=== PATIENT | female | born 1950 | race American Indian/Alaskan Native ===

== ENCOUNTER 2020-04-04 17:05 | Emergency (ER) | payer MEDICARE ==
--- NOTE | 2020-04-04 18:23 | Emergency Department Report ---
HPI - General Chief Complaint: Psych Time Seen by Provider: 04/04/20 18:07 - HPI HPI: This is a 69-year-old female who presents to the emergency department via EMS from home with a complaint of alcohol intoxication, depression, and suicidal ideations. The patient has a past medical history of hypertension and a CVA from 2017 with some residual right-sided weakness. The patient mostly gets around by wheelchair. She had a fall trying to transfer from the wheelchair to the couch, where she sleeps. She denies hitting her head, any loss of consciousness. She denies any neck, back or extremity pain. Patient says that she has a psychiatric history of depression for which she is on an antidepressant that "starts with a C." She has been feeling depressed for the past 4 to 5 months and says that this is all been exacerbated by the pandemic because "my is so scared of getting sick so we do not go anywhere ever." Patient says that she has been suicidal for the past 1 month. She says "I do not feel like my life is worth living at this age." The patient says that she would have a plan to overdose on antidepressants, but the only thing keeping her from doing so is "I believe in God and I am afraid that if I killed myself I would go to hell and I would not see my mother." She denies any homicidal ideations or any hallucinations. The patient does drink alcohol daily. Today she said she drank a lot of wine to try and "kill the pain." No history of alcohol withdrawal seizures or delirium tremens. ED Past Medical Hx - Past Medical History Previous Medical History?: Yes Hx Hypertension: Yes Hx CVA: Yes (right sided deficits) - Social History Smoking Status: Never Smoker Substance Use Type: Alcohol ED Review of Systems ROS: Stated complaint: SUICIDAL THOUGHTS Other details as noted in HPI Comment: All other systems reviewed and negative Constitutional: denies: chills, fever Eyes: denies: eye pain, vision change ENT: denies: ear pain, throat pain Respiratory: denies: cough, shortness of breath Cardiovascular: denies: chest pain, palpitations Gastrointestinal: denies: abdominal pain, vomiting Musculoskeletal: denies: back pain, arthralgia Neurological: denies: headache, numbness Psychiatric: depression, suicidal thoughts. denies: auditory hallucinations, visual hallucinations, homicidal thoughts Physical Exam - Physical Exam Physical Exam: GENERAL: The patient is well-developed well-nourished. Disheveled appearance. HENT: Normocephalic. Atraumatic. Patient has moist mucous membranes. EYES: Extraocular motions are intact. NECK: Supple. Trachea is midline. CHEST/LUNGS: Clear to auscultation. There is no respiratory distress noted. HEART/CARDIOVASCULAR: Regular. There is no tachycardia. ABDOMEN: Abdomen is soft, nontender. Patient has normal bowel sounds. SKIN: Skin is warm and dry. NEURO: The patient is awake, alert, and oriented. The patient is cooperative. Normal speech. MUSCULOSKELETAL: There is no tenderness to palpation. PSYCH: Patient is tearful. ED Course - Reevaluation(s) Reevaluation #1: 04/05/20 00:34 Lab Results 04/04/20 04/04/20 04/04/20 Range/Units 18:10 18:10 18:10 WBC 2.7 L (4.5-11.0) K/mm3 RBC 3.44 L (3.65-5.03) M/mm3 Hgb 12.1 (10.1-14.3) gm/dl Hct 35.2 (30.3-42.9) % MCV 102 H (79-97) fl MCH 35 H (28-32) pg MCHC 34 (30-34) % RDW 12.6 L (13.2-15.2) % Plt Count 178 (140-440) K/mm3 Lymph % (Auto) 44.0 H (13.4-35.0) % Stanly % (Auto) 5.4 (0.0-7.3) % Eos % (Auto) 1.1 (0.0-4.3) % Baso % (Auto) 1.2 (0.0-1.8) % Lymph # (Auto) 1.2 (1.2-5.4) K/mm3 Stanly # (Auto) 0.1 (0.0-0.8) K/mm3 Eos # (Auto) 0.0 (0.0-0.4) K/mm3 Baso # (Auto) 0.0 (0.0-0.1) K/mm3 Seg Neutrophils % 48.3 (40.0-70.0) % Seg Neutrophils # 1.3 L (1.8-7.7) K/mm3 Sodium 136 L (137-145) mmol/L Potassium 4.3 (3.6-5.0) mmol/L Chloride 102.3 (98-107) mmol/L Carbon Dioxide 20 L (22-30) mmol/L Anion Gap 18 mmol/L BUN 9 (7-17) mg/dL Creatinine 0.8 (0.6-1.2) mg/dL Estimated GFR > 60 ml/min BUN/Creatinine Ratio 11 % Glucose 80 (65-100) mg/dL Calcium 8.8 (8.4-10.2) mg/dL Total Bilirubin 0.30 (0.1-1.2) mg/dL AST 57 H (5-40) units/L ALT 35 (7-56) units/L Alkaline Phosphatase 114 (35-129) units/L Total Protein 6.6 (6.3-8.2) g/dL Albumin 3.3 L (3.9-5) g/dL Albumin/Globulin Ratio 1.0 % Salicylates < 0.3 L (2.8-20.0) mg/dL Acetaminophen (10.0-30.0) ug/mL Plasma/Serum Alcohol (0-0.07) % 04/04/20 04/04/20 Range/Units 18:10 18:10 WBC (4.5-11.0) K/mm3 RBC (3.65-5.03) M/mm3 Hgb (10.1-14.3) gm/dl Hct (30.3-42.9) % MCV (79-97) fl MCH (28-32) pg MCHC (30-34) % RDW (13.2-15.2) % Plt Count (140-440) K/mm3 Lymph % (Auto) (13.4-35.0) % Stanly % (Auto) (0.0-7.3) % Eos % (Auto) (0.0-4.3) % Baso % (Auto) (0.0-1.8) % Lymph # (Auto) (1.2-5.4) K/mm3 Stanly # (Auto) (0.0-0.8) K/mm3 Eos # (Auto) (0.0-0.4) K/mm3 Baso # (Auto) (0.0-0.1) K/mm3 Seg Neutrophils % (40.0-70.0) % Seg Neutrophils # (1.8-7.7) K/mm3 Sodium (137-145) mmol/L Potassium (3.6-5.0) mmol/L Chloride (98-107) mmol/L Carbon Dioxide (22-30) mmol/L Anion Gap mmol/L BUN (7-17) mg/dL Creatinine (0.6-1.2) mg/dL Estimated GFR ml/min BUN/Creatinine Ratio % Glucose (65-100) mg/dL Calcium (8.4-10.2) mg/dL Total Bilirubin (0.1-1.2) mg/dL AST (5-40) units/L ALT (7-56) units/L Alkaline Phosphatase (35-129) units/L Total Protein (6.3-8.2) g/dL Albumin (3.9-5) g/dL Albumin/Globulin Ratio % Salicylates (2.8-20.0) mg/dL Acetaminophen 5.0 L (10.0-30.0) ug/mL Plasma/Serum Alcohol 0.23 H (0-0.07) % ED Medical Decision Making - Lab Data Result diagrams: 04/04/20 18:10 04/04/20 18:10 - Medical Decision Making This patient presents to the emergency department with complaint of depression and suicidal ideations. The patient would have a plan to overdose on her antidepressant medication. For this reason she has been made a 1013. She does admit to alcohol abuse and dependence. She denies any history of alcohol withdrawal or delirium tremens. Blood alcohol level came back at 0.23. She was given multivitamins and thiamine. Blood work also shows some mild leukopenia and mild elevation in the AST, most likely secondary to her alcohol use/abuse. We are still waiting for a urine sample for urinalysis and urine drug screen. If the patient has a urinary tract infection she will need to be started on antibiotics. Her vital signs have been reassuring throughout her ED course thus far including being afebrile. Patient appears medically clear for psychiatric placement. Critical Care Time: No Critical care attestation.: If time is entered above; I have spent that time in minutes in the direct care of this critically ill patient, excluding procedure time. ED Disposition Clinical Impression: Suicidal ideations, Alcohol abuse Depression Qualifiers: Depression Type: unspecified Qualified Code(s): F32.9 - Major depressive disorder, single episode, unspecified Disposition: DC/TX-65 PSY HOSP/PSY UNIT Is pt being admited?: No Condition: Stable Time of Disposition: 00:36
[2020-04-04 18:24] LABS: Basophils % (Auto) 1.2 % (0.0-1.8); Eosinophils % (Auto) 1.1 % (0.0-4.3); Hematocrit 35.2 % (30.3-42.9); Hemoglobin 12.1 gm/dl (10.1-14.3); Lymphocytes # (Auto) 1.2 K/mm3 (1.2-5.4); Mean Corpuscular HGB Conc 34 % (30-34); Mean Corpuscular Volume 102 fl (79-97); Monocytes # (Auto) 0.1 K/mm3 (0.0-0.8); Monocytes % (Auto) 5.4 % (0.0-7.3); Platelet Count 178 K/mm3 (140-440); Red Blood Count 3.44 M/mm3 (3.65-5.03); Red Cell Distribution Width 12.6 % (13.2-15.2)
[2020-04-04 18:45] LABS: Alanine Aminotransferase 35 units/L (7-56); Albumin 3.3 g/dL (3.9-5); BUN/Creatinine Ratio 11; Blood Urea Nitrogen 9 mg/dL (7-17); Calcium 8.8 mg/dL (8.4-10.2); Hemolysis Index 62
[2020-04-04] MEDS ORDERED: MULTIVITAMINS ,THERAPEUTIC TAB PO ONE ×2 (18:58→21:27)
[2020-04-04] MEDS ORDERED: THIAMINE 100 MG TAB PO ONE (18:58)
[2020-04-04] MEDS ORDERED: THIAMINE 100 MG TAB ONE (21:26)
[2020-04-05 08:05] LABS: Bacteria,Urine 1+ /HPF (Negative); Bilirubin,Urine NEG (Negative); Blood,Urine NEG (Negative); Color,Urine Yellow (Yellow); Mucus,Urine 3+ /HPF; Protein,Urine <15 mg/dL mg/dL (Negative); Urobilinogen,Urine < 2.0 mg/dL (<2.0)
[2020-04-05 08:27] LABS: Amphetamine Screen,Urine Negative; Benzodiazepines Screen,Urine Negative; Cannabinoid Screen,Urine Negative; Cocaine Screen,Urine Negative; Methadone Screen,Urine Negative; Opiate Screen,Urine Negative
--- NOTE | 2020-04-05 10:58 | Consultation ---
History of Present Illness - Reason for Consult Consult date: 04/05/20 Reason for consult: SI, depression - History of Present Psychiatric Illness Cary Sheffield is a 69y/o female patient who presented to the ER with suicidal thoughts and depression that has gotten progressively worse due to the pandemic, according to medical record. During my interview with the patient she is lying down, she is awake. She says "I felt like killing myself." The patient then becomes tearful. She says, "my wants to leave me." She says she is "depressed." The patient denies hallucinations of any kind. She also denies any illicit drug use or nicotine use. The patient says she drinks alcohol. She says "I don't remember" when asked what and how much she drank. She says her last drink was yesterday. She says she has a history of depression. She says "I was taking celex and wellbutrin but I don't think they are helping." She denies suicide attempts in the past. PAST PSYCHIATRIC HISTORY: Diagnoses: Major Depression Suicide attempts or Self-harm behavior: Denies Prior psychiatric hospitalizations: Yes Substance Abuse history: ETOH Previous psychiatric medications tried: celexa and depression Outpatient treatment: Yes PAST MEDICAL HISTORY: None reported Family Psychiatric History None reported SOCIAL HISTORY Marital Status: Living Arrangements: with spouse Employment Status: Retired Access to guns/weapons: Denied Education: College grad History of Abuse: Denies Legal History: Denies ROS: Constitutional: Negative for weight loss ENT: Negative for stridor Respiratory: Negative for cough or hemoptysis All other systems reviewed and are negative MENTAL STATUS EXAMINATION General Appearance and Behavior: Age appropriate, fair hygiene, wearing appropriate clothes, good eye contact, cooperative, polite with questioning. Cooperation: Participating Psychomotor Behavior: Normal Mood: Depressed Affect and affective range: tearful Thought Process: Goal directed Thought Content: suicidal thoughts Speech: Normal volume, Regular rate and rhythm Suicidal Ideation: Suicidal Homicidal Ideation: Denies Hallucinations: Denies Delusions: None elicited Impulse Control: Limited Insight and Judgment: Limited Memory/Cognition: Limited Orientation: Alert, oriented Assessment and Plan Major Depressive Disorder, Severe w/o Psychotic Features Current Visit: Yes Status: Acute TREATMENT PLAN 1013 CIWA Continue home celexa and wellbutrin Start Abilify 5mg po daily Start Trazodone 50mg po qhs Start Klonopin 0.25mg po BID Sitter: Defer to primary Medical: Per primary Disposition: Recommend acute inpatient psychiatric treatment Will follow. Thank you for this consult Medications and Allergies Allergies Allergy/AdvReac Type Severity Reaction Status Date / Time No Known Allergies Allergy Verified 04/04/20 21:30 Home Medications Medication Instructions Recorded Confirmed Last Taken Type Amlodipine Besylate [Norvasc] 2.5 mg PO DAILY 04/05/20 04/05/20 Unknown History Citalopram [celeXA] 40 mg PO QDAY 04/05/20 04/05/20 Unknown History buPROPion XL [Wellbutrin Xl] 150 mg PO QAM 04/05/20 04/05/20 Unknown History carvediloL [Coreg] 3.125 mg PO BID 04/05/20 04/05/20 Unknown History lisinopriL [Zestril TAB] 40 mg PO QDAY 04/05/20 04/05/20 Unknown History Mental Status Exam - Vital signs Last Vital Signs Temp 99.6 F 04/05/20 02:05 Pulse 114 H 04/05/20 02:05 Resp 18 04/05/20 02:05 BP 130/74 04/05/20 02:05 Pulse Ox 97 04/05/20 02:05 Results Result Diagrams: 04/04/20 18:10 04/04/20 18:10 Abnormal lab results 04/04/20 04/04/20 04/04/20 Range/Units 18:10 18:10 18:10 WBC 2.7 L (4.5-11.0) K/mm3 RBC 3.44 L (3.65-5.03) M/mm3 MCV 102 H (79-97) fl MCH 35 H (28-32) pg RDW 12.6 L (13.2-15.2) % Lymph % (Auto) 44.0 H (13.4-35.0) % Seg Neutrophils # 1.3 L (1.8-7.7) K/mm3 Sodium 136 L (137-145) mmol/L Carbon Dioxide 20 L (22-30) mmol/L AST 57 H (5-40) units/L Albumin 3.3 L (3.9-5) g/dL Salicylates < 0.3 L (2.8-20.0) mg/dL Acetaminophen (10.0-30.0) ug/mL Plasma/Serum Alcohol (0-0.07) % 04/04/20 04/04/20 Range/Units 18:10 18:10 WBC (4.5-11.0) K/mm3 RBC (3.65-5.03) M/mm3 MCV (79-97) fl MCH (28-32) pg RDW (13.2-15.2) % Lymph % (Auto) (13.4-35.0) % Seg Neutrophils # (1.8-7.7) K/mm3 Sodium (137-145) mmol/L Carbon Dioxide (22-30) mmol/L AST (5-40) units/L Albumin (3.9-5) g/dL Salicylates (2.8-20.0) mg/dL Acetaminophen 5.0 L (10.0-30.0) ug/mL Plasma/Serum Alcohol 0.23 H (0-0.07) % All other labs normal.
[2020-04-05] MEDS ORDERED: chlordiazePOXIDE 25 MG CAP PO PRN ×2 (11:08)
[2020-04-05] MEDS ORDERED: ARIPiprazole 5 MG TAB PO SCH (12:00)
[2020-04-05] MEDS ORDERED: CITALOPRAM 20 MG TAB PO SCH (12:00)
[2020-04-05] MEDS: clonazePAM 0.5 MG TAB PO SCH ×2 (16:57→22:23)
[2020-04-05] MEDS ORDERED: traZODone 50 MG TAB PO SCH (22:00)
[2020-04-05 22:25] VITALS: BP 144/87
[2020-04-06] MEDS ORDERED: buPROPion XL 150 MG TAB PO SCH (10:00)
== END 2020-04-05 23:21 ==
LOC: ED 17:05
DX: F32.89 Other specified depressive episodes (principal); I10 Essential (primary) hypertension; Z86.73 Personal history of transient ischemic attack (TIA), and cerebral infarction without residual deficits
CPT/HCPCS: 36415; 80053; 80307; 81001; 85025; 99284; U0003; 80320; G0480